=== PATIENT | female | born 1990 | race African-American/Black ===

== ENCOUNTER 2018-07-16 06:39 | Inpatient (IN) ==
[2018-07-16 07:10] LABS: URINE SOURCE VOIDED
[2018-07-16 07:18] LABS: BILIRUBIN URINE NEGATIVE (NEGATIVE); BLOOD URINE 1+ (NEGATIVE); CLARITY CLEAR (CLEAR); COLOR YELLOW; GLUCOSE URINE NEGATIVE (NEGATIVE); KETONE URINE NEGATIVE (NEGATIVE); LEUKOCYTES URINE 1+ (NEGATIVE); NITRITE URINE NEGATIVE (NEGATIVE); PH URINE 6.5; PROTEIN URINE NEGATIVE (NEGATIVE); SP GRAVITY URINE 1.015; UROBILINOGEN URINE NORMAL
[2018-07-16] MEDS ORDERED: LR 1,000 ML IV SCH (07:45)
[2018-07-16] MEDS ORDERED: STADOL IV PRN (08:30)
[2018-07-16] MEDS ORDERED: REGLAN PO ONE (08:30)
[2018-07-16] MEDS ORDERED: PEPCID PO ONE (08:30)
[2018-07-16] MEDS ORDERED: ZOFRAN IV PRN (08:30)
[2018-07-16] MEDS ORDERED: PEPCID IV PRN (08:30)
[2018-07-16] MEDS ORDERED: LR 500 ML IV ONE (08:30)
[2018-07-16] MEDS ORDERED: PITOCIN 30 UNITS/NS 30 UNIT/500 ML IV.SOLN IV SCH ×2 (08:30→17:15)
[2018-07-16] MEDS ORDERED: KEFZOL 1 GM/D5W 1 GM/50 ML IVPB IV PRN (08:30)
[2018-07-16] MEDS ORDERED: SODIUM CHLORIDE 0.9% INJ SCH (08:30)
[2018-07-16] MEDS ORDERED: TYLENOL PO PRN (08:30)
[2018-07-16] MEDS: LR 1,000 ML IV SCH ×3 (08:44→14:01)
[2018-07-16] MEDS ORDERED: XYLOCAINE-MPF 1% INJ ONE (08:51)
[2018-07-16] MEDS ORDERED: MINERAL OIL ONE (08:52)
[2018-07-16] MEDS ORDERED: FENTANYL-BUPIV-NS 2 MCG-0.1% 200 ML EPIDURAL SCH (09:00)
[2018-07-16] MEDS ORDERED: NAROPIN 0.2% INJ ONE (09:15)
[2018-07-16 09:18] LABS: BASO# 0.01 X1000 (0.0-0.2); BASO% 0.2 % (0.0-0.8); EOS# 0.08 X1000 (0.0-0.7); EOS% 1.6 % (0.0-10.0); IMM GRAN# 0.02 X1000 (0.0-0.04); IMM GRAN% 0.4 % (0.0-0.5); MCV 90.2 FL (81-99)
[2018-07-16 09:21] LABS: HEMATOCRIT 32.3 % (37.0-47.0); HEMOGLOBIN 10.4 g/dL (12.0-16.0); LYMPH# 2.22 X1000 (1.2-3.4); LYMPH% 43.6 % (20.5-51.1); MCH 29.1 PG (27-31); MCHC 32.2 g/dL (33-37); MONO# 0.45 X1000 (0.11-0.59); MONO% 8.8 % (1.7-9.3); MPV 12.1 FL (7.4-10.4); NEUT# 2.31 X1000 (1.4-6.5); NEUT% 45.4 % (42.2-75.2); PLT 200 X1000 (130-400); RBC 3.58 XMIL (4.2-5.4); RDW 12.8 % (11.5-14.5); WBC 5.09 X1000 (4.8-10.8)
[2018-07-16 10:46] LABS: UR AMPHETAMINES QUAL NONE DETECTED (NONE DETECT); UR BARBITUATES QUAL NONE DETECTED (NONE DETECT); UR BENZODIAZEPIN QUAL NONE DETECTED (NONE DETECT); UR CANNABINOIDS QUAL NONE DETECTED (NONE DETECT); UR COCAINE QUAL NONE DETECTED (NONE DETECT); UR METHADONE QUAL NONE DETECTED (NONE DETECT); UR METHAMPHETAMINE QUAL NONE DETECTED (NONE DETECT); UR OPIATES QUAL NONE DETECTED (NONE DETECT); UR OXYCODONE QUAL NONE DETECTED (NONE DETECT); UR PCP QUAL NONE DETECTED (NONE DETECT); UR PROPOXYPHENE QUAL NONE DETECTED (NONE DETECT); UR TCA QUAL NONE DETECTED (NONE DETECT)
[2018-07-16] MEDS: PEPCID PO PRN (14:18)
--- NOTE | 2018-07-16 14:22 | OB/GYN PROGRESS NOTE ---
Progress Note OB - . OB Progress Note: Vital Signs - 24 hr 07/16/18 07:04 Temperature 98.2 F Pulse Rate 78 Respiratory Rate 20 Blood Pressure 137/81 O2 Sat by Pulse Oximetry 99 Laboratory Results - last 24 hr 07/16/18 07/16/18 07/16/18 06:50 07:45 07:45 WBC 5.09 RBC 3.58 L Hgb 10.4 L Hct 32.3 L MCV 90.2 MCH 29.1 MCHC 32.2 L RDW Std Deviation 12.8 Plt Count 200 MPV 12.1 H Immature Gran % (Auto) 0.4 Neut % (Auto) 45.4 Lymph % (Auto) 43.6 [place] % (Auto) 8.8 Eos % (Auto) 1.6 Baso % (Auto) 0.2 Immature Gran # (Auto) 0.02 Neut # (Auto) 2.31 Lymph # (Auto) 2.22 [place] # (Auto) 0.45 Eos # (Auto) 0.08 Baso # (Auto) 0.01 Urine Source VOIDED Urine Color YELLOW Urine Clarity CLEAR Urine pH 6.5 Ur Specific [place] 1.015 Urine Protein NEGATIVE Urine Ketones NEGATIVE Urine Blood 1+ A Urine Nitrite NEGATIVE Urine Bilirubin NEGATIVE Urine Urobilinogen NORMAL Urine WBC 1+ A Urine Glucose NEGATIVE Urine Opiates Screen Ur Oxycodone Screen Urine Methadone Screen U Propoxyphene Qual Ur Barbituates Screen Ur Tricyclics Screen Ur Phencyclidine Scrn Ur Amphetamines Screen U Methamphetamines Scrn U Benzodiazepines Scrn Urine Cocaine Screen U Cannabinoids Screen RPR NON-REACTIVE 07/16/18 09:53 WBC RBC Hgb Hct MCV MCH MCHC RDW Std Deviation Plt Count MPV Immature Gran % (Auto) Neut % (Auto) Lymph % (Auto) [place] % (Auto) Eos % (Auto) Baso % (Auto) Immature Gran # (Auto) Neut # (Auto) Lymph # (Auto) [place] # (Auto) Eos # (Auto) Baso # (Auto) Urine Source Urine Color Urine Clarity Urine pH Ur Specific [place] Urine Protein Urine Ketones Urine Blood Urine Nitrite Urine Bilirubin Urine Urobilinogen Urine WBC Urine Glucose Urine Opiates Screen NONE DETECTED Ur Oxycodone Screen NONE DETECTED Urine Methadone Screen NONE DETECTED U Propoxyphene Qual NONE DETECTED Ur Barbituates Screen NONE DETECTED Ur Tricyclics Screen NONE DETECTED Ur Phencyclidine Scrn NONE DETECTED Ur Amphetamines Screen NONE DETECTED U Methamphetamines Scrn NONE DETECTED U Benzodiazepines Scrn NONE DETECTED Urine Cocaine Screen NONE DETECTED U Cannabinoids Screen NONE DETECTED RPR S. Patient resting in bed. Epidural in place. Denies MILLARD/SOB/Vision changes. No pain. O. Vitals WNL FHM: 150, mod sanjeev, No accels. rare late decel. [place]: Q2-5mins SVE: 5/90/-3 A/P 27yo @ 39/5wks in spontaneous labor. Maternal monitoring reassuring. No cervical change in hours. Will add pitocin slowly. Expect vaginal delivery.
--- NOTE | 2018-07-16 14:30 | HISTORY AND PHYSICAL ---
HISTORY OF PRESENT ILLNESS: Ms. Bullock is G4, P2-0-1-2 at 39 and 5 days who presents with painful contractions this morning after 2 hours, she changed from 3 cm of dilation to 4- 5. She was in significant pain and had an epidural placed. She currently has no pain. No complaints. She denies headache, shortness of breath, vision changes, right upper quadrant pain. Her care was complicated by late care and anemia. PAST MEDICAL HISTORY: She has a negative history. PAST SURGICAL HISTORY: Surgeries denies. ALLERGIES: Denies. MEDICINE: She takes ferrous sulfate. FAMILY MEDICAL HISTORY: Noncontributory. SOCIAL HISTORY: She has 2 children, 1 born in 2007 and 1 born in 2010. She denies alcohol, tobacco. Denies alcohol, tobacco, and drug use. Her. REVIEW OF SYSTEMS: Is negative for full 14 point systems and she is now pain- free. LABORATORY DATA: She has B-positive blood type. Negative antibodies. Rubella is immune. VDRL was negative, nonreactive. Hepatitis B was nonreactive. GC and Chlamydia were negative. Her sickle cell screen was negative. Hep C antibody was negative. She also had a negative drug screen and a group B strep was negative.A 1- hour GTT was 120. heart rate. 150, mod sanjeev, no decels or accels. PHYSICAL EXAMINATION: HEENT: Head is atraumatic and normocephalic. NECK: Her trachea is midline. CHEST: Clear to auscultation bilaterally. HEART: Regular rate and rhythm. ABDOMEN: Soft and gravid. EXTREMITIES: Without edema. ASSESSMENT AND PLAN: 27-year-old, G4, P2, at 39 and 5 weeks who presents in spontaneous labor. Maternal monitoring reassuring. Expect vaginal delivery. cc: DO ELISABETH Charles
--- NOTE | 2018-07-16 16:41 | OB/GYN PROGRESS NOTE ---
Progress Note OB - . OB Progress Note: Vital Signs - 24 hr 07/16/18 07:04 Temperature 98.2 F Pulse Rate 78 Respiratory Rate 20 Blood Pressure 137/81 O2 Sat by Pulse Oximetry 99 Laboratory Results - last 24 hr 07/16/18 07/16/18 07/16/18 06:50 07:45 07:45 WBC 5.09 RBC 3.58 L Hgb 10.4 L Hct 32.3 L MCV 90.2 MCH 29.1 MCHC 32.2 L RDW Std Deviation 12.8 Plt Count 200 MPV 12.1 H Immature Gran % (Auto) 0.4 Neut % (Auto) 45.4 Lymph % (Auto) 43.6 [place] % (Auto) 8.8 Eos % (Auto) 1.6 Baso % (Auto) 0.2 Immature Gran # (Auto) 0.02 Neut # (Auto) 2.31 Lymph # (Auto) 2.22 [place] # (Auto) 0.45 Eos # (Auto) 0.08 Baso # (Auto) 0.01 Urine Source VOIDED Urine Color YELLOW Urine Clarity CLEAR Urine pH 6.5 Ur Specific [place] 1.015 Urine Protein NEGATIVE Urine Ketones NEGATIVE Urine Blood 1+ A Urine Nitrite NEGATIVE Urine Bilirubin NEGATIVE Urine Urobilinogen NORMAL Urine WBC 1+ A Urine Glucose NEGATIVE Urine Opiates Screen Ur Oxycodone Screen Urine Methadone Screen U Propoxyphene Qual Ur Barbituates Screen Ur Tricyclics Screen Ur Phencyclidine Scrn Ur Amphetamines Screen U Methamphetamines Scrn U Benzodiazepines Scrn Urine Cocaine Screen U Cannabinoids Screen RPR NON-REACTIVE 07/16/18 09:53 WBC RBC Hgb Hct MCV MCH MCHC RDW Std Deviation Plt Count MPV Immature Gran % (Auto) Neut % (Auto) Lymph % (Auto) [place] % (Auto) Eos % (Auto) Baso % (Auto) Immature Gran # (Auto) Neut # (Auto) Lymph # (Auto) [place] # (Auto) Eos # (Auto) Baso # (Auto) Urine Source Urine Color Urine Clarity Urine pH Ur Specific [place] Urine Protein Urine Ketones Urine Blood Urine Nitrite Urine Bilirubin Urine Urobilinogen Urine WBC Urine Glucose Urine Opiates Screen NONE DETECTED Ur Oxycodone Screen NONE DETECTED Urine Methadone Screen NONE DETECTED U Propoxyphene Qual NONE DETECTED Ur Barbituates Screen NONE DETECTED Ur Tricyclics Screen NONE DETECTED Ur Phencyclidine Scrn NONE DETECTED Ur Amphetamines Screen NONE DETECTED U Methamphetamines Scrn NONE DETECTED U Benzodiazepines Scrn NONE DETECTED Urine Cocaine Screen NONE DETECTED U Cannabinoids Screen NONE DETECTED RPR S. Patient feeling a lot of pressure. O. FHM: 150, mod sanjeev, intermittent variable decels, no accels A/P Expect vaginal delivery.
[2018-07-16] MEDS ORDERED: PERI MEDS (DERMOPLAST/NUPERCAINAL/TUCKS) MISC PRN (17:07)
[2018-07-16] MEDS ORDERED: PITOCIN IM PRN (17:07)
[2018-07-16] MEDS ORDERED: XYLOCAINE-MPF 1% INJ PRN (17:07)
[2018-07-16] MEDS ORDERED: BENADRYL IV PRN (17:07)
[2018-07-16] MEDS ORDERED: CYTOTEC PO PRN (17:07)
[2018-07-16] MEDS ORDERED: M-M-R II VACCINE SUBQ ONE (17:07)
[2018-07-16] MEDS ORDERED: BENADRYL PO PRN (17:07)
[2018-07-16] MEDS ORDERED: NORCO-10 PO PRN (17:07)
[2018-07-16] MEDS ORDERED: HYDROXYZINE IM PRN (17:07)
[2018-07-16] MEDS ORDERED: BOOSTRIX VACCINE IM ONE (17:07)
[2018-07-16] MEDS ORDERED: ATARAX PO PRN (17:07)
[2018-07-16] MEDS ORDERED: AMBIEN PO PRN (17:07)
[2018-07-16] MEDS ORDERED: PITOCIN 20 UNITS/NS 20 UNITS/1,000 ML IV.SOLN ONE (17:58)
--- NOTE | 2018-07-16 18:42 | OPERATIVE NOTE ---
PROCEDURE DATE: 07/16/2018 PREOPERATIVE DIAGNOSES: 1. Intrauterine at 39 weeks 5 days. 2. Late care. 3. Group B streptococcus negative. 4. Spontaneous labor. POSTOPERATIVE DIAGNOSES: 1. Intrauterine at 39 weeks 5 days. 2. Late care. 3. Group B streptococcus negative. 4. Spontaneous labor. FINDINGS: Male in cephalic presentation. Weight 7 pounds 10 ounces. scores of 8 and 10. PROCEDURE: The patient progressed through normal labor with augmentation. She had changed to complete-complete and was brought to the edge of the table. Her vaginal region was prepped in a normal fashion. The patient pushed and delivered the head initially in OP, but then reverting to OA on delivery. The head was delivered atraumatically followed by the anterior shoulder. There was a tight nuchal cord noted and the baby was delivered through it. The posterior shoulder was then delivered, followed by the rest of the body. The was suctioned with bulb suction and the cord was clamped and cut, after stripping of the cord. The was handed off to the nursing personnel. The placenta was then delivered by Schultze presentation. The vagina was inspected and found to be free of lacerations. The patient tolerated the procedure well. Mother and baby are doing well in the LDRP. BLOOD LOSS: 300 mL cc: Jalil Zheng DO
[2018-07-16] MEDS: MOTRIN PO PRN (20:06)
[2018-07-16] MEDS: NORCO-5 PO PRN (20:36)
[2018-07-16] MEDS: PERICOLACE PO SCH (23:27)
[2018-07-17 08:12] LABS: BASO# 0.02 X1000 (0.0-0.2); BASO% 0.3 % (0.0-0.8); EOS# 0.14 X1000 (0.0-0.7); EOS% 1.8 % (0.0-10.0); HEMATOCRIT 28.9 % (37.0-47.0); HEMOGLOBIN 9.2 g/dL (12.0-16.0); IMM GRAN# 0.03 X1000 (0.0-0.04); IMM GRAN% 0.4 % (0.0-0.5); LYMPH# 2.57 X1000 (1.2-3.4); LYMPH% 33.4 % (20.5-51.1); MCH 29.1 PG (27-31); MCHC 31.8 g/dL (33-37); MCV 91.5 FL (81-99); MONO# 0.71 X1000 (0.11-0.59); MONO% 9.2 % (1.7-9.3); MPV 11.8 FL (7.4-10.4); NEUT# 4.23 X1000 (1.4-6.5); NEUT% 54.9 % (42.2-75.2); PLT 179 X1000 (130-400); RBC 3.16 XMIL (4.2-5.4); RDW 12.9 % (11.5-14.5)
[2018-07-17] MEDS: MOTRIN PO PRN ×2 (08:30→22:32)
--- NOTE | 2018-07-17 09:48 | OB/GYN PROGRESS NOTE ---
Progress Note OB - . Patient Problems: Current Active Problems Problem Status Onset Intrauterine Acute OB Progress Note: Vital Signs - 24 hr 07/16/18 17:10 07/16/18 17:20 07/16/18 17:30 Temperature 99.1 F Pulse Rate 92 H 84 88 Respiratory Rate 20 20 20 Blood Pressure Blood Pressure [Right Arm] 127/71 130/68 132/73 O2 Sat by Pulse Oximetry 99 99 97 07/16/18 17:40 07/16/18 17:50 07/16/18 18:00 Temperature Pulse Rate 72 76 76 Respiratory Rate 20 20 20 Blood Pressure Blood Pressure [Right Arm] 139/78 143/89 143/79 O2 Sat by Pulse Oximetry 98 99 99 07/16/18 18:10 07/16/18 20:40 07/17/18 00:00 Temperature 98.0 F Pulse Rate 78 86 84 Respiratory Rate 20 18 18 Blood Pressure 125/77 134/71 139/75 Blood Pressure [Right Arm] 125/77 O2 Sat by Pulse Oximetry 98 99 99 07/17/18 02:00 07/17/18 06:20 07/17/18 07:23 Temperature 97.0 F L 96.5 F L 97.4 F L Pulse Rate 80 73 78 Respiratory Rate 18 18 16 Blood Pressure 138/68 146/76 135/79 Blood Pressure [Right Arm] O2 Sat by Pulse Oximetry 100 Laboratory Results - last 24 hr 07/16/18 07/17/18 09:53 05:30 WBC 7.70 RBC 3.16 L Hgb 9.2 L Hct 28.9 L MCV 91.5 MCH 29.1 MCHC 31.8 L RDW Std Deviation 12.9 Plt Count 179 MPV 11.8 H Immature Gran % (Auto) 0.4 Neut % (Auto) 54.9 Lymph % (Auto) 33.4 [place] % (Auto) 9.2 Eos % (Auto) 1.8 Baso % (Auto) 0.3 Immature Gran # (Auto) 0.03 Neut # (Auto) 4.23 Lymph # (Auto) 2.57 [place] # (Auto) 0.71 H Eos # (Auto) 0.14 Baso # (Auto) 0.02 Urine Opiates Screen NONE DETECTED Ur Oxycodone Screen NONE DETECTED Urine Methadone Screen NONE DETECTED U Propoxyphene Qual NONE DETECTED Ur Barbituates Screen NONE DETECTED Ur Tricyclics Screen NONE DETECTED Ur Phencyclidine Scrn NONE DETECTED Ur Amphetamines Screen NONE DETECTED U Methamphetamines Scrn NONE DETECTED U Benzodiazepines Scrn NONE DETECTED Urine Cocaine Screen NONE DETECTED U Cannabinoids Screen NONE DETECTED S. patient walking in the room. She has no complaints. She is ambulating well, urinating well and tolerating regular food. Her pain is well controlled and she is bottle feeding baby. O. Vitals WNL HEENT: Normocephalic Chest: CTAB Heart: RRR Abdomen soft and uterus below the umbilicus Ext: NT, no edema A/P 27yo s/p PPD #1. Patient doing well. Routine care.
[2018-07-17] MEDS: ICAR-C PLUS PO SCH (12:03)
[2018-07-17] MEDS: PEPCID PO PRN (13:14)
[2018-07-17] MEDS: PERICOLACE PO SCH (22:32)
[2018-07-17] MEDS: NORCO-5 PO PRN (22:32)
[2018-07-18 07:19] VITALS: BP 141/80
[2018-07-18] MEDS: MOTRIN PO PRN (07:33)
[2018-07-18] MEDS ORDERED: BOOSTRIX VACCINE IM ONE (07:54)
--- NOTE | 2018-07-18 08:04 | DISCHARGE SUMMARY ---
ADMISSION DATE: 07/16/2018 DISCHARGE DATE: 07/18/2018 ADMISSION DIAGNOSIS: IUP at 39 and 5/7 weeks in active labor. FINAL DIAGNOSIS: IUP at 39 and 5/7 weeks in active labor with vaginal delivery of a male 7 pounds and 9 ounces with Apgars of 8 and 10 at 16:55 on 07/16/2018. PROCEDURE: Spontaneous vaginal delivery. BRIEF HISTORY: The patient is a 27-year-old black female, G4, P2, A1 at 39 and 5/7ths weeks who presents with uterine contractions and made cervical change from 3 cm to 4 to 5 cm. PAST MEDICAL HISTORY: Unremarkable. PAST SURGICAL HISTORY: None. ALLERGIES: Denies MEDICATIONS: Iron sulfate. FAMILY HISTORY: Noncontributory. SOCIAL HISTORY: Denies alcohol, tobacco, or drug use. LABORATORY STUDIES: Blood type B positive. heart is 150s with moderate variability. PHYSICAL EXAMINATION: HEENT: Atraumatic and normocephalic. Neck: Trachea is midline. Chest: Clear to auscultation. Heart: Regular rate and rhythm. Abdomen: Gravid. Extremities: No edema. ASSESSMENT AND PLAN: This is a 27-year-old G4, P2, A1 at 39 and 5/7 weeks who presents in spontaneous labor. Patient received epidural, and expect vaginal delivery. Patient had a vaginal delivery of a male , 7 pounds, 9 ounces with Apgars of 8 and 10 at 16:55 on 07/16/2018. She did not need any repair after delivery. The patient's course was unremarkable. Her hemoglobin was 9.2. hematocrit was 28.9. The patient has maintained stable vital signs and was afebrile. On day #2, felt she could be discharged home. DISCHARGE INSTRUCTIONS: Patient instructed on pelvic rest for 6 weeks. Patient instructed to call for a temperature greater than 101, heavy vaginal bleeding, or severe abdominal pain out of the ordinary. DISCHARGE MEDICATIONS: 1. She was given [place] 5 dispensed 20. No refills. 2. Colace 100 mg dispensed 30 with 1 refill. 3. Iron sulfate 325 mg dispensed 30 with 1 refill. 4. Motrin 800 mg dispensed 30 with 1 refill. FOLLOW UP: The patient is considering IUD, and will discuss this when she returns in 6 weeks for check. cc: MD Jalil Hobson III,
[2018-07-18] MEDS: ICAR-C PLUS PO SCH (09:33)
== END 2018-07-18 12:55 | disposition home or self-care (01) | DRG 807 ==
LOC: P.NBC 06:39 → P.LD 06:41
PROVIDERS: ADMIT Obstetrics & Gynecology; ATTEND Obstetrics & Gynecology
CPT/HCPCS: 80104; 80301; 80305; 81003; 85025; 86592; 90715; A9270; G0431; G0434; G0477; J2590; J2795; J7120

== ENCOUNTER 2018-07-23 04:59 | Inpatient (IN) ==
--- NOTE | 2018-07-23 06:19 | PROVIDER DOCUMENTATION ---
HPI-Respiratory General - General Chief Complaint: Cough Stated Complaint: COUGH Time Seen by Provider: 07/23/18 05:20 Allergies/Adverse Reactions: Patient Allergies Allergy/AdvReac Type Severity Reaction Status Date / Time No Known Allergies Allergy Verified 07/18/18 07:21 Home Medications: Home Medication List Medication Instructions Recorded Confirmed Last Taken Type Ferrous Sulfate [Iron] 325 mg PO DAILY #30 tab 07/18/18 Unknown Rx Hydrocodone/APAP 5 mg/325 mg 1 ea PO Q3-4H PRN PRN #20 tab 07/18/18 Unknown Rx [[place]-5] Ibuprofen [Motrin] 800 mg PO Q8H PRN PRN #30 tab 07/18/18 Unknown Rx - History of Present Illness-Resp Nature of Presenting Problem: URI S/S FOR THE PAST 2-3 DAYS [facility] COUGH NEGATIVE FEVER S/P DELIVERY OF BABY 1 WEEK AGO. BOTTLE FEEDING . HAS NOT BEEN AROUND ANY SICK INDIVIDUALS. NEGATIVE SEASONAL ALLERGIES Review of Systems - Adult - REVIEW OF SYSTEMS - ADULT Constitutional: reports: fatique Eyes: reports: no symptoms reported Ears, Nose, Mouth & Throat: reports: sinus problem, nose pain, hoarseness, other (NASAL CONGESTION) Cardiovascular: reports: no symptoms reported Respiratory: reports: cough ([facility]-COUGH), shortness of breath Gastrointestinal: reports: no symptoms reported Genitourinary: reports: no symptoms reported, other (NORMAL LOCIA RUBOR --FROM RECENT DELIVERY) Musculoskeletal: reports: joint pain (MILD -SCATTERED), muscle weakness (MILD) Integumentary: reports: other (NEGATIVE EDEMA). denies: rash Neurological: reports: no symptoms reported Psychiatric: reports: no symptoms reported Endocrine: reports: no symptoms reported Hematologic/Lymphatic: reports: no symptoms reported Allergic/Immunologic: reports: no symptoms reported All Other Systems: Reviewed and Negative Past History - Adult - PAST MEDICAL HISTORY-ADULT Review of Records: reports: Nursing Assessment Review Major Childhood Illnesses: reports: denies history Cardiovascular: reports: denies history Respiratory: reports: denies history Gastrointestinal: reports: denies history Genitourinary: reports: denies history Musculoskeletal: reports: denies history - PRIOR SURGERIES/PROCEDURES Surgical/Procedure History: reports: other (R tube removed) - IMMUNIZATION STATUS Childhood Immunizations: See Nurse Assessment Flu Vaccine: See Nurse Assessment - FAMILY HISTORY Family History: reviewed, not pertinent Physical Exam-General - PHYSICAL EXAM-ADULT Exam Limited by: NONE Initial Vital Signs Reviewed: Yes (HTN POS: HX INTERMITTENT HTN --DURING RECENT ) - CONSTITUTIONAL General Appearance: appears well, no apparent distress, obese (MILD) - EYES Eyes: PERRL/EOMI - HEAD, EARS, NOSE, MOUTH & THROAT HENMT: TM abnormal (JENNIFER: BILATERALLY), maxillary tenderness (MILD : WITH PERCUSSION) - NECK Neck: non-tender, full range of motion, supple, normal inspection - RESPIRATORY Respiratory: chest non-tender, lungs clear, normal breath sounds, no pleuratic chest pain, no respiratory distress, no accessory muscle use - CARDIOVASCULAR Cardiovascular: normal peripheral pulses, regular rate, rhythm, no edema, no gallop, no JVD, no murmur - GASTROINTESTINAL (ABDOMEN) Abdominal Exam: normal bowel sounds, non tender, soft, no pulsatile mass, other (S/P DELIVERY: UTX,NT 2-3 FB BELOW UMBILICUS) - LYMPHATIC Lymphatic: no adenopathy - MUSCULOSKELETAL Back Exam: normal inspection, no CVA tenderness, no vertebral tenderness, CVA tenderness, decreased range of motion Extremity: normal range of motion, non-tender, normal gait, normal inspection, no calf tenderness, other (CALF: 34CM BILATERALLY NT, NEG-HOMINS SIGN) - SKIN Integumentary: normal color, normal turgor, warm/dry - NEUROLOGIC Neurologic: nutrition representative II-XII nml as tested, grossly normal, no motor/sensory deficits, abnormal nutrition representative II-XII, abnormal gait - PSYCHIATRIC Psych/Mental Status: normal mood/affect, normal thought content, normal thought process Progress - PLAN OF CARE/RESULTS Progress/Plan/Lab Results: Vital Signs - 8 hr 07/23/18 05:03 Temperature 98.5 F Pulse Rate 65 Respiratory Rate 19 Blood Pressure 179/99 O2 Sat by Pulse Oximetry 93 L Orders Category Date Time Status DIRECT STREP PL Stat Lab 07/23/18 05:[address] Stat Lab 07/23/18 05:47 Received Result Diagrams: 07/23/18 06:22 07/23/18 06:22 Departure - Departure Date of Disposition Decision: 07/23/18 Time of Disposition Decision: 08:38 DIAGNOSIS: cardiomyopathy Disposition: ADMITTED INPATIENT 09 Certified Medical Emergency: Emergent Condition: Stable Additional Freetext Instructions: ED Follow Up Instructions: You have been treated by a care provider in the Emergency Department. These instructions are being provided to you so you can have an understanding of how to care for yourself upon discharge. Upon discharge from the Emergency Department, you are responsible for making arrangements for follow-up care by a physician of your choice. Take all prescribed medications as directed. Return to the Emergency Department immediately for any new or worsening symptoms. You may call the Physician Referral phone number at [phone] to obtain a list of Physicians who are taking new patients. Referrals and Follow-Ups: None,PCP [Primary Care Provider] - - Critical Care Note This patient required my direct & personal management of CC.: No Attestation - Physician/ YANIQUE Attestation Patient care was provided by Advanced Practice Provider:: No The physician spent face to face time with patient:: Yes Advanced Practice Provider documentation review:: Supervising physician onsite and consulted in the evaluation and care of this patient. The physician did have a face to face encounter with the patient.
[2018-07-23] MEDS ORDERED: CATAPRES PO ONE (06:21)
[2018-07-23 06:51] LABS: INFLUENZA A NEGATIVE (NEGATIVE); INFLUENZA B NEGATIVE (NEGATIVE)
[2018-07-23 06:51] LABS: BASO# 0.02 X1000 (0.0-0.2); BASO% 0.4 % (0.0-0.8); EOS# 0.19 X1000 (0.0-0.7); EOS% 3.8 % (0.0-10.0); HEMATOCRIT 31.6 % (37.0-47.0); HEMOGLOBIN 10.1 g/dL (12.0-16.0); IMM GRAN# 0.06 X1000 (0.0-0.04); IMM GRAN% 1.2 % (0.0-0.5); LYMPH# 1.95 X1000 (1.2-3.4); LYMPH% 38.8 % (20.5-51.1); MCV 90.8 FL (81-99); MONO# 0.38 X1000 (0.11-0.59); MONO% 7.6 % (1.7-9.3); MPV 9.8 FL (7.4-10.4); NEUT# 2.42 X1000 (1.4-6.5); NEUT% 48.2 % (42.2-75.2); PLT 271 X1000 (130-400); RBC 3.48 XMIL (4.2-5.4); RDW 12.9 % (11.5-14.5); WBC 5.02 X1000 (4.8-10.8)
[2018-07-23 07:22] LABS: AGAP 10; BUN 9 mg/dL (8-22); CALCIUM 8.1 mg/dL (8.8-10.2); CHLORIDE 108 mmol/L (98-107); COSMO 281; CREATININE 0.6 mg/dL (0.5-0.9); ESTIMATED GFR > 60; GLUCOSE 84 mg/dL (70-104); POTASSIUM 3.7 mmol/L (3.5-5.1); SODIUM 142 mmol/L (136-145); TCO2 24 mmol/L (25-35)
--- NOTE | 2018-07-23 08:02 | Diag Imaging Result Doc PS360 ---
CHEST-2 VIEWS - 07/23/2018 INDICATION: cough COMPARISON: 11/14/2011 FINDINGS: Stable borderline cardiomegaly. No focal infiltrates, pneumothorax, or pleural effusion. Pulmonary vascularity is normal. IMPRESSION: Borderline cardiomegaly. No change from prior. Electronically signed by Charly Lion 07/23/2018 7:59 AM
[2018-07-23] MEDS ORDERED: TYLENOL PO PRN (08:59)
[2018-07-23] MEDS ORDERED: LASIX IV ONE (09:03)
[2018-07-23] MEDS: ICAR-C PO SCH (10:36)
[2018-07-23] MEDS: APRESOLINE IV PRN (10:36)
[2018-07-23] MEDS: APRESOLINE PO SCH ×2 (12:29→20:00)
--- NOTE | 2018-07-23 13:44 | HISTORY AND PHYSICAL ---
CHIEF COMPLAINT: Shortness of breath, nonproductive cough and lower extremity edema. HISTORY OF PRESENT ILLNESS: This is a 27-year-old female with no prior health history, other than 3 bursts, who presented to the emergency room complaining of increasing shortness of breath, nonproductive cough, PND, orthopnea and lower extremity edema that has been present for the last 5 days. She underwent a vaginal delivery on 07/16/2018, was discharged from the hospital on the 07/18/2018. She states that symptoms began during the night after discharge, and it progressed throughout these last few days. She denies any syncope or dizziness, any chest pain or palpitations, any fevers or chills. PAST MEDICAL HISTORY: Vaginal deliveries. PAST SURGICAL HISTORY: Denies. SOCIAL HISTORY: She has had 3 vaginal deliveries. She denies alcohol, tobacco, or illicit drug use. She does live with family members. ALLERGIES: No known drug allergies. HOME MEDICATIONS: A list will be obtained by the nursing staff, and once verified will review and restart as appropriate. REVIEW OF SYSTEMS: Discussed with patient with pertinent positives stated in the HPI. She denied any syncope, dizziness, chest pain, palpitations, a productive cough, any fevers or chills, night sweats, any nausea, vomiting, diarrhea, constipation, black or bloody vomitus or stools, any hematuria, dysuria, frequency, urgency. PHYSICAL EXAMINATION: GENERAL: This is a 27-year-old female, who is sitting up in the stretcher in the emergency room in no distress. VITAL SIGNS: Blood pressure is 162/111 with respirations of 18, heart rate 65, temperature is 98.4 degrees oral with room air saturations 94% to 98%. EYES: Pupils equal, round, react to light. EOMS are intact. Sclerae anicteric. HENT: Head is normocephalic, atraumatic. Mucous membranes are moist. NECK: Supple with trachea midline. She has no JVD. CARDIOVASCULAR: Regular rate and rhythm. S1 and S2 appreciated. No murmur. No S3. She does have bilateral pretibial pitting edema, as well as pedal edema. Calves are nontender bilateral with peripheral pulses palpable x4 extremities. PULMONARY: Breath sounds are clear with no increased work of breathing noted. GASTROINTESTINAL: Abdomen is soft. She is tender in the lower abdomen. She is status post delivery and uterus can be palpated about 3 fingerbreadths below the umbilicus. NEUROLOGIC: She is alert and oriented x3. SKIN: Warm and dry. LABS: WBC is 5.0 with a hemoglobin of 10.1, hematocrit 31.6, platelets 271. Sodium is 142, potassium 3.7, BUN 9, creatinine 0.6 with a glucose of 84. ProBNP is 868. Influenza A and B and strep are negative. X-RAYS: Chest x-ray revealed borderline cardiomegaly. No change from prior. Pulmonary vascularity is normal. ASSESSMENT AND PLAN: 1. Cardiomegaly. This is per chest x-ray as she is with other symptoms. We will obtain an echocardiogram. 2. Dyspnea, paroxysmal nocturnal dyspnea, orthopnea. She was given Lasix in the emergency room. We will keep strict intake/output. We will repeat Lasix tonight. We will give supplemental oxygen as needed. Echocardiogram as stated above. 3. Hypertension. We will start hydralazine 50 mg oral every 8 hours. In the interim, we will give 10 mg intravenous as needed systolic blood pressure greater than 190 or diastolic blood pressure greater than 100. 4. Anemia. We will continue her Icar C. 5. Recent vaginal delivery. Aware. We will continue her Motrin, as well as her [place] 5 as needed for pain. 6. For deep vein thrombosis prophylaxis, we will use sequential compression devices. 7. For deep vein thrombosis prophylaxis, we will use LILIBETH hose. We will hold off on any oral anticoagulation as she is 5 days . 8. For gastrointestinal prophylaxis, we will use Prilosec. 9. We will obtain a D-dimer. We will repeat a complete blood count and comprehensive metabolic panel in the morning. Further treatments pending hospital course. Dictated by MEDINA Galeas for Yuri Vargas MD cc: MEDINA Galeas MD
[2018-07-23] MEDS: NORCO-5 PO PRN ×2 (15:00→23:56)
[2018-07-23] MEDS ORDERED: DILAUDID IV ONE (15:31)
--- NOTE | 2018-07-23 16:08 | ECHO REPORT ---
ORDER DATE: 07/23/2018 INDICATION: Evaluate for peripartum cardiomyopathy, shortness of breath. FINDINGS: 1. Right atrium appears normal in size at 2.6 cm. 2. Mild tricuspid regurgitation. RV systolic pressure of 48. 3. Normal RV size and systolic function. 4. Trace pulmonic insufficiency. 5. Normal left atrial size at 3.7 cm. 6. No mitral valve prolapse. Mild mitral regurgitation. No mitral stenosis. 7. Normal LV size, end-diastolic dimension of 4.5. Normal wall thicknesses with a posterior and interventricular septal wall thickness 1.0 cm each. Normal LV systolic function. Estimated EF of 65% with normal wall motion. 8. Aortic valve opens well, it is trileaflet. No evidence of stenosis or insufficiency. 9. Aorta appears normal in visualized segments. 10. There is a question of a possible very scant pericardial effusion anteriorly with no evidence of tamponade physiology. This is extremely small. cc: MD America Cardenas CRNP
[2018-07-23] MEDS: MOTRIN PO PRN (18:01)
--- NOTE | 2018-07-23 18:38 | Diag Imaging Result Doc PS360 ---
CT ANGIOGRM PULMONARY ARTERIES - 07/23/2018 INDICATION: elevated ddimer, dyspnea, 5 days PP TECHNIQUE: Axial CT images were obtained after administering intravenous contrast. Coronal MIP images were generated. COMPARISON: None FINDINGS: There is no pulmonary embolism. There is mild cardiomegaly. There is some minimal hazy interstitial infiltrate in the lung bases. No adenopathy. Upper abdominal images are unremarkable. Bony structures are intact. IMPRESSION: Negative for pulmonary embolism. Cardiomegaly and faint infiltrates/pulmonary edema. Correlate clinically. This may represent cardiomyopathy. This exam was performed using automated exposure control, adjustment of mA or kV according to patient size, and/or use of iterative reconstruction technique Electronically signed by Charly Lion 07/23/2018 6:36 PM
[2018-07-23] MEDS ORDERED: ROCEPHIN 1 GM in NS 50 ML IV SCH (18:45)
--- NOTE | 2018-07-23 18:47 | HISTORY AND PHYSICAL ---
CHIEF COMPLAINT: Cough, shortness of breath. HISTORY OF PRESENT ILLNESS: The patient is a very pleasant 27-year-old female who presented to the hospital with cough and shortness of breath. Denies any fevers or chills. She delivered a baby approximately a week ago. She has been bottle-feeding. Denies any known sick contacts. ALLERGIES: No known drug allergies. MEDICATIONS: Iron, [place] 5 p.r.n., ibuprofen. REVIEW OF SYSTEMS: Positive sinus congestion, cough, hoarseness and nasal congestion. Denies any fevers. Denies any production in her cough. She has been short of breath. She has been having a headache, seems to be worse today than usual. Still having some joint pain, muscle aches. Denies any dysuria. No frequency, urgency, hesitancy, polyuria or polydipsia. Denies any skin rashes, weight loss or weight gain, although she admits she has not really been checking her weight over the past few days. PAST MEDICAL HISTORY: No chronic active medical problems. SURGICAL HISTORY: She has had right tube removed. FAMILY HISTORY: Noncontributory. SOCIAL HISTORY: She denies smoking or drinking. She has just recently had a child. PHYSICAL EXAMINATION: VITAL SIGNS: Reviewed. Temperature 98 degrees, pulse 65, respiratory 19, BP 179/99, saturation 93% on room air. GENERAL: The patient is awake, alert, very pleasant to talk with. She is in no current respiratory distress. She is somewhat ill appearing. HEENT: Normocephalic. NECK: Supple. CARDIOVASCULAR: Regular rate. CHEST: Clear. No current crackles or wheezing. ABDOMEN: Soft, obese, nontender. EXTREMITIES: Moves all extremities. Minimal edema. NEUROLOGIC: No focal neurological changes. She is awake, alert and oriented x3. LABORATORY DATA: Hemoglobin and hematocrit 10 and 30. CMP normal. D-dimer elevated. ASSESSMENT: 1. Hypertension, malignant. 2. Headache. 3. Sinus congestion, likely sinusitis. 4. Others. PLAN: We will admit the patient to the hospital, treat her blood pressure, treat her congestion. Check an echocardiogram. We will look at CTA, rule out DVT and we will follow. cc: Yuri Vargas MD
[2018-07-23] MEDS ORDERED: ZITHROMAX PO SCH (19:00)
[2018-07-23] MEDS: LASIX IV SCH (20:00)
[2018-07-24] MEDS: APRESOLINE PO SCH ×2 (06:04→13:18)
[2018-07-24] MEDS ORDERED: PRILOSEC PO SCH (07:00)
[2018-07-24 07:03] LABS: HEMATOCRIT 35.9 % (37.0-47.0); HEMOGLOBIN 11.3 g/dL (12.0-16.0); MCH 28.3 PG (27-31); MCHC 31.5 g/dL (33-37); MPV 10.1 FL (7.4-10.4); RBC 3.99 XMIL (4.2-5.4); RDW 13.1 % (11.5-14.5); WBC 5.29 X1000 (4.8-10.8)
[2018-07-24 07:51] LABS: AGAP 15; BUN 11 mg/dL (8-22); CALCIUM 8.1 mg/dL (8.8-10.2); CHLORIDE 102 mmol/L (98-107); COSMO 279; CREATININE 0.7 mg/dL (0.5-0.9); ESTIMATED GFR > 60; GLUCOSE 104 mg/dL (70-104); SODIUM 140 mmol/L (136-145); TCO2 24 mmol/L (25-35)
[2018-07-24] MEDS: LASIX IV SCH (08:00)
[2018-07-24] MEDS: NORCO-5 PO PRN ×2 (08:00→13:17)
[2018-07-24] MEDS: ICAR-C PO SCH (08:01)
[2018-07-24] MEDS ORDERED: KLOR-CON PO ONE (10:41)
[2018-07-24] MEDS: APRESOLINE IV PRN (12:02)
[2018-07-24] MEDS: MOTRIN PO PRN (12:43)
[2018-07-24 15:49] VITALS: BP 137/79
--- NOTE | 2018-07-24 15:49 | Extremity Venous Study ---
Venous U/S Bilateral Legs - 07/24/2018 INDICATION: dyspnea, elevated ddimer TECHNIQUE: COMPARISON: None FINDINGS: The veins of the lower extremities are fully compressible. There is normal color and pulse wave Doppler signal. IMPRESSION: Negative exam. Electronically signed by Charly Lion 07/24/2018 3:47 PM
--- NOTE | 2018-07-24 16:34 | DISCHARGE SUMMARY ---
ADMISSION DATE: 07/23/2018 DISCHARGE DATE: 07/24/2018 DIAGNOSES: 1. Malignant hypertension, resolved. 2. Headache, resolved. 3. Sinus congestion, likely sinusitis. 4. Anemia, currently receiving iron supplements. 5. Dyspnea, resolved. The patient diuresed 3,100 for a accumulative negative balance of 1,240. 6. Bilateral infiltrates versus pulmonary edema. DIAGNOSTICS: 1. Chest x-ray revealed borderline cardiomegaly, no change from prior. 2. Echocardiogram revealed normal LV systolic function and estimated EF of 65% with normal wall motion. Normal RV size and function. Mild tricuspid regurgitation. Trace pulmonic insufficiency. No mitral valve prolapse. No mitral regurgitation. No mitral stenosis. Aortic valves open well as trileaflet. No evidence of stenosis or insufficiency. There is a question of a possible very scant pericardial effusion anteriorly with no evidence of tamponade physiology, this is extremely small. 3. Pulmonary arteriogram negative for pulmonary embolism. Cardiomegaly and faint infiltrates, pulmonary edema. This may represent cardiomyopathy. 4. Lower extremity Doppler revealed no evidence of DVT. 5. Influenza A and B are negative. Group A rapid strep negative. HOSPITAL COURSE: Ms. Bullock presented to the emergency room complaining of shortness of breath, nonproductive cough, PND, and orthopnea that started over the previous 5 days. This had a slow progression, although over the 12-15 hours prior to coming to the emergency room she was unable to lay flat. She stated that she sat up in a recliner to sleep the night prior to coming to the ER. Of note, she did have a vaginal delivery on July 16 and was discharged from the hospital on July 18. She was diuresed for a negative accumulative total of 1,300 mL. She states she feels much better. She denies any shortness of breath. She is able to lay flat and breathe. We continued her iron supplements. Blood pressures initially were in the 170s to 180s over 100 to 111 range. With diuresis and hydralazine pressures are now in the 140s to 150s over 70s to 80s range. DISCHARGE MEDICATIONS: 1. Hydralazine 25 mg p.o. t.i.d. 2. Iron 325 mg p.o. daily. 3. Ibuprofen 800 mg p.o. q.8 hours p.r.n. 4. [place] 5/325 1 q.3-4 hours p.r.n. 5. Omnicef 300 mg p.o. b.i.d. for 5 days. 6. Zithromax 250 mg daily for 5 days. FOLLOW UP: 1. Dr. Sheppard. She is to keep her appointment as scheduled. 2. Dr. Seymour Bullock. She is to see in 2-4 weeks for re-evaluation of a scant pericardial effusion as well as cardiomegaly. 3. Her primary care physician. If she has none she will be given the number to the Physician Referral Line. 4. She has been instructed to call to be seen sooner or return to the emergency room for any syncope, dizziness, increasing shortness of breath, palpitations, chest pain, temperature greater than 101, productive cough, recurring PND or orthopnea, any nausea, vomiting, diarrhea, constipation, black or bloody vomitus or stools, any hematuria, dysuria, frequency, urgency. DISPOSITION: She is being discharged home in stable condition with family members. TIME SPENT: This is a greater than 30 minute discharge. Dictated by MEDINA Galeas for Yuri Vargas MD cc: MEDINA Galeas MD
--- NOTE | 2018-07-24 18:09 | DISCHARGE SUMMARY ---
ADMISSION DATE: 07/23/2018 DISCHARGE DATE: 07/24/2018 DISCHARGE ADDENDUM: Patient seen and examined by myself. Full note dictated and discussed with nurse practitioner. On discharge, patient is awake, alert, currently in no distress. Overall feeling better. She does have mild cardiomegaly but echo appears normal. Blood pressures are improved. We will discharge her home on blood pressure medications. Will follow up outpatient with primary care of choice. cc: Yuri Vargas MD
== END 2018-07-24 16:13 | disposition home or self-care (01) | DRG 776 ==
LOC: P.ED 04:59 → P.MEDSURG 09:49
PROVIDERS: ATTEND Family Medicine
CPT/HCPCS: 71020; 71046; 71275; 80048; 83880; 85025; 85027; 85379; 87081; 87275; 87276; 87430; 87804; 93306; 93970; 94761; 94799; 96374; 99284; A9270; J0360; J0696; J1170; J1940; Q9967